=== PATIENT | female | born 1930 | race Caucasian/White ===

== ENCOUNTER → 2016-08-01 | Outpatient (CLI) | payer MEDICARE ==
[~2016-08-01] MED LIST: ASPI-655 PO; CALC1TAB PO; CEPH-350 PO; CIPR500T86 PO; DOCU-123 PO; DULO60CA7 PO; EZET10TA18 PO; FAMO-75 PO; FENO145T PO; FLUT9.9S NS; FURO20TA3 PO; INSU100V11 SUBCUT; INSU100V8 SQ; LACT1CAP11 PO; LEVO500T51 PO; METO25TA4 PO; POTA10CA PO; POTA8TAB6 PO; RISP1TAB45 PO
--- NOTE | 2016-08-03 12:38 | ECHO ---
DATE OF SERVICE: 08/01/2016 INDICATIONS: An 86-year-old lady with AFib, hypertension, syncopal episodes. Echocardiographic study was requested to evaluate systolic and diastolic function, ruling out any structural or valvular heart disease. FINDINGS: 1. Study quality was fair. 2. Underlying rhythm is sinus rhythm. 3. Demand pacemaker rhythm beats were also noted. 4. LV function was normal, EF was around 55-60%. Moderate concentric LVH. No LVOT obstruction. Mild septal hypokinesia. 5. RV size and EF were normal. 6. LV dimension were normal measuring 5 cm in AP diameter. 7. Both atria showed moderate dilatation. 8. Mitral valve showed calcification of the leaflet and the annulus, minimal regurgitation noted, no stenosis. Diastolic parameters were impaired. Doppler examination across the mitral inflow showed mild regurgitation and diastolic impairment. 9. Mitral valve mean gradient by Doppler signal exam was 1.5 mmHg ruling out significant stenosis. 10. Mild tricuspid regurgitation. Pulmonary artery systolic pressure was between 20 and 25 mmHg. 11. Aortic valve showed moderate regurgitation. Aortic valve Doppler signal estimated the mean velocity of 1 meter per second, aortic valve area by VTI method was 3.2 cm2, normal. 12. No pericardial effusion. 13. Pacemaker wire in the RV cavity noted. 14. IVC was normal in size. IMPRESSION: 1. Preserved EF around 60%. 2. Mild septal hypokinesia. 3. Moderate concentric LVH. No LVOT obstruction. 4. Normal LV dimension. 5. Normal RV size and EF. 6. Moderate dilatation of both atria. 7. Mitral calcification with diastolic relaxation abnormality. 8. Moderate aortic regurgitation, no stenosis. Aortic valve velocity and areas were normal. 9. No pericardial effusion. 10. Normal pulmonary artery systolic pressure. 11. Normal IVC size. Xochilt Arnold MD DR: LEE ANN/lucio JOB# [id number]
== END | disposition home or self-care (01) ==
LOC: RT 13:03
PROVIDERS: ATTEND Internal Medicine
DX: R01.1 Cardiac murmur, unspecified (principal)
CPT/HCPCS: 93307